=== PATIENT | female | born 1985 | race Caucasian/White ===

== ENCOUNTER 2017-04-20 15:35 | Emergency (ER) | payer OTHER ==
[~2017-04-20] VITALS: Ht 160 cm; Wt 86.2 kg
[~2017-04-20 15:35] MED LIST: AMPI250C11 PO; CIPR-17 PO; DCS100C PO; DICY20TA57 PO; HYDR-3720 PO; HYOS0.1217 PO; Ibuprofen PO; NITR100C3 PO; OMEP-10 PO; OXYC-12 PO; PHEN200T27 PO; PNV1TABL9 PO; PREN1TAB39 PO
--- OUTSIDE RECORDS SUMMARY | 2017-04-20 15:42 | XMS REPORT | Continuity of Care Document ---
Author Author [facility] Organization [facility] Address Unknown Phone Unavailable Allergies Active Description Code Type Severity Reaction Onset Reported/Identified Relationship to Patient Clinical Status Yes codeine [id number] Drug Allergy Mild SLEEPINESS 09/01/2010 Medications Problems Procedures Results Encounters ACCT No. Visit Date/Time Discharge Status Pt. Type Provider Facility Loc./Unit Complaint [id number] 01/16/2014 22:00:00 2013 12:55:00 DIS Inpatient [id number] 01/08/2014 10:07:00 2013 17:30:00 DIS Inpatient [id number] 01/02/2014 16:00:00 2013 09:44:00 DIS Inpatient [id number] 12/09/2013 14:02:00 2013 17:25:00 DIS Outpatient [id number] 04/20/2017 15:37:00 ACT Emergency MARTIN ODELL, CATHY [place] [facility] ER EXPOSED TO MENIGITIS,HEADACHE,STIFF NECK
[2017-04-20] MEDS ORDERED: CITA20TA7 (16:18)
[2017-04-20 16:38] LABS: BASOPHILS # (AUTO) 0.1 10^3/uL (0.0-0.1); BASOPHILS % (AUTO) 1 % (0-10); EOSINOPHILS # (AUTO) 0.3 10^3/uL (0.0-0.3); EOSINOPHILS % (AUTO) 5 % (0-10); LYMPHOCYTES # (AUTO) 2.1 X 10^3 (1.0-4.0); LYMPHOCYTES % (AUTO) 35 % (12-44); MEAN CORPUSCULAR HEMOGLOBIN 31 PG (25-34); MEAN CORPUSCULAR HGB CONC 35 G/DL (32-36); MEAN CORPUSCULAR VOLUME 91 FL (80-99); MEAN PLATELET VOLUME 9.2 FL (7.4-10.4); MONOCYTES # (AUTO) 0.4 X 10^3 (0.0-1.0); MONOCYTES % (AUTO) 7 % (0-12); NEUTROPHILS % (AUTO) 51 % (42-75); PLATELET COUNT 241 10^3/uL (130-400); RED BLOOD COUNT 4.41 10^6/uL (4.35-5.85); RED CELL DISTRIBUTION WIDTH 12.1 % (10.0-14.5); WHITE BLOOD COUNT 5.9 10^3/uL (4.3-11.0)
--- NOTE | 2017-04-20 16:41 | ED General ---
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 She was exposed on Tuesday 04/17 to a patient who was discharged on Sunday but subsequently grew Neisseria meningitidis in his sputum. The patient was not admitted for meningitis but rather respiratory complaints. 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 He and his family were notified and staff exposed to him or given Cipro prophylaxis. She learned of this this morning. She reports a cough and a headache. She was advised to present for examination by infection control. Timing/Duration: 1-2 Days Associated Systoms: Cough, Headaches (CATHY SALAZAR MD) Allergies and Home Medications Allergies Coded Allergies: codeine (Unverified Allergy, Mild, SLEEPINESS, 09/01/10) Home Medications Citalopram Hydrobromide 20 Mg Tablet, (Reported) Codeine/Butalbital/ASA/Caffein 1 Each Capsule, 1 EACH PO Q4H PRN for HEADACHE, # 10 Prescribed by: ALEX RAMIREZ on 04/20/17 2220 Cyclobenzaprine HCl 5 Mg Tablet, 5 MG PO TID PRN for PAIN-MODERATE TO SEVERE, # 14 Prescribed by: ALEX RAMIREZ on 04/20/17 2218 Constitutional: see HPI EENTM: no symptoms reported Respiratory: cough Cardiovascular: no symptoms reported Gastrointestinal: no symptoms reported Genitourinary: no symptoms reported Musculoskeletal: no symptoms reported Skin: no symptoms reported Psychiatric/Neurological: No Symptoms Reported (CATHY SALAZAR MD) Past Icbnnxn-Ctdxdh-Ezbbvr Hx Patient Social History Alcohol Use: Denies Use Recreational Drug Use: No Smoking Status: Never a Smoker Recent Foreign Travel: No Contact w/Someone Who Travel: No Recent Infectious Disease Expo: No Recent Hopitalizations: Yes (childbirth, pyleo) (CATHY SALAZAR MD) Immunizations Up To Date Tetanus Booster (TDap): More than 5yrs PED Vaccines UTD: Yes (CATHY SALAZAR MD) Surgeries History of Surgeries: Yes (ear tubes) (CATHY SALAZAR MD) Respiratory History of Respiratory Disorde: Yes (in 1st grade) Respiratory Disorders: Pneumonia (CATHY SALAZAR MD) Cardiovascular History of Cardiac Disorders: No (CATHY SALAZAR MD) Neurological History of Neurological Disord: No (CATHY SALAZAR MD) Reproductive System Hx Reproductive Disorders: No Sexually Transmitted Disease: No HIV/AIDS: No Female Reproductive Disorders: Denies (CATHY SALAZAR MD) Genitourinary Genitourinary Disorders: UTI-Chronic (CATHY SALAZAR MD) Gastrointestinal History of Gastrointestinal Di: No (CATHY SALAZAR MD) Musculoskeletal History of Musculoskeletal Dis: No (CATHY SALAZAR MD) Endocrine History of Endocrine Disorders: No (CATHY SALAZAR MD) Cancer History of Cancer: No (CATHY SALAZAR MD) Psychosocial History of Psychiatric Problem: Yes (ANGER ISSUES. ) (CATHY SALAZAR MD) Integumentary History of Skin or Integumenta: No (CATHY SALAZAR MD) Blood Transfusions History of Blood Disorders: No Adverse Reaction to a Blood Tr: No (CATHY SALAZAR MD) Family Medical History Family Medial History: Arthritis 19 MOTHER Asthma 19 MOTHER Congenital heart disease maternal grandmother Dementia maternal grandmother Diabetes mellitus maternal grandmother Hypercholesterolemia 19 MOTHER maternal grandmother Hypertension 19 MOTHER maternal grandmother Kidney disease maternal grandmother Respiratory disorder maternal grandmother Thyroid disease 19 MOTHER No Family History of: AIDS Abdominal aortic aneurysm [place] disease Alcoholism Alzheimer's disease Aphasia Cancer of mouth Cardiovascular disease Cataracts Colon cancer Completed stroke Congenital disease Coronary thrombosis Cystic fibrosis Deafness or hearing loss Drug abuse Dysphasia Fibrocystic disease of breast Gastroenteritis Glaucoma Headache disorder Infertility Myocardial infarction Neoplasm Not obtainable due to adoption Osteoporosis Parkinson's disease Prostate cancer Psychosocial problem Seizure disorder Severe allergy Tuberculosis Visual disorder (CATHY SALAZAR MD) Family Medial History: Arthritis 19 MOTHER Asthma 19 MOTHER Congenital heart disease maternal grandmother Dementia maternal grandmother Diabetes mellitus maternal grandmother Hypercholesterolemia 19 MOTHER maternal grandmother Hypertension 19 MOTHER maternal grandmother Kidney disease maternal grandmother Respiratory disorder maternal grandmother Thyroid disease 19 MOTHER No Family History of: AIDS Abdominal aortic aneurysm [place] disease Alcoholism Alzheimer's disease Aphasia Cancer of mouth Cardiovascular disease Cataracts Colon cancer Completed stroke Congenital disease Coronary thrombosis Cystic fibrosis Deafness or hearing loss Drug abuse Dysphasia Fibrocystic disease of breast Gastroenteritis Glaucoma Headache disorder Infertility Myocardial infarction Neoplasm Not obtainable due to adoption Osteoporosis Parkinson's disease Prostate cancer Psychosocial problem Seizure disorder Severe allergy Tuberculosis Visual disorder (ALEX RAMIREZ APRN) Physical Exam Vital Signs Vital Sign - Last 12Hours 04/20/17 04/20/17 15:52 22:59 Temp 98.3 Pulse 92 Resp 18 B/P (MAP) 136/ Pulse Ox 98 O2 Delivery Room Air (ALEX RAMIREZ APRN) Vital Signs Capillary Refill : Less Than 3 Seconds (CATHY SALAZAR MD) General Appearance: Other (cough) Eyes: Bilateral Eye Normal Inspection HEENT: Pharynx Normal Neck: Full Range of Motion, Normal Inspection, Non Tender, Supple, Carotid Bruit, Other (no nuchal rigidity) Respiratory: Chest Non Tender, Lungs Clear, Normal Breath Sounds, No Accessory Muscle Use, No Respiratory Distress Cardiovascular: Regular Rate, Rhythm, No Edema, No Gallop, No JVD, No Murmur, Normal Peripheral Pulses Skin: Normal Color, Warm/Dry (CATHY SALAZAR MD) Progress/Results/Core Measures Suspected Sepsis Recent Fever Within 48 Hours: No Infection Criteria Present: None New/Unexplained Altered Menta: No Sepsis Screen: No Definite Risk Sepsis Diagnosis: SIRS Temperature:98.3 Pulse: 92 Respiratory Rate: 18 Laboratory Tests 04/20/17 16:28: Blood Pressure 136 / Mean: Laboratory Tests 04/20/17 16:28: (CATHY SALAZAR MD) Results/Orders Lab Results Laboratory Tests Test 04/20/17 16:28 04/20/17 21:55 Range/Units White Blood Count 5.9 4.3-11.0 10^3/uL Red Blood Count 4.41 4.35-5.85 10^6/uL Hemoglobin 13.8 11.5-16.0 G/DL Hematocrit 40 35-52 % Mean Corpuscular Volume 91 80-99 FL Mean Corpuscular Hemoglobin 31 25-34 PG Mean Corpuscular Hemoglobin Concent 35 32-36 G/DL Red Cell Distribution Width 12.1 10.0-14.5 % Platelet Count 241 130-400 10^3/uL Mean Platelet Volume 9.2 7.4-10.4 FL Neutrophils (%) (Auto) 51 42-75 % Lymphocytes (%) (Auto) 35 12-44 % Monocytes (%) (Auto) 7 0-12 % Eosinophils (%) (Auto) 5 0-10 % Basophils (%) (Auto) 1 0-10 % Neutrophils # (Auto) 3.0 1.8-7.8 X 10^3 Lymphocytes # (Auto) 2.1 1.0-4.0 X 10^3 Monocytes # (Auto) 0.4 0.0-1.0 X 10^3 Eosinophils # (Auto) 0.3 0.0-0.3 10^3/uL Basophils # (Auto) 0.1 0.0-0.1 10^3/uL Sodium Level 138 135-145 MMOL/L Potassium Level 4.0 3.6-5.0 MMOL/L Chloride Level 105 98-107 MMOL/L Carbon Dioxide Level 27 21-32 MMOL/L Anion Gap 6 5-14 MMOL/L Blood Urea Nitrogen 10 7-18 MG/DL Creatinine 0.89 0.60-1.30 MG/DL Estimat Glomerular Filtration Rate > 60 BUN/Creatinine Ratio 11 Glucose Level 96 70-105 MG/DL Calcium Level 9.4 8.5-10.1 MG/DL Total Bilirubin 0.6 0.1-1.0 MG/DL Aspartate Amino Transf (AST/SGOT) 18 5-34 U/L Alanine Aminotransferase (ALT/SGPT) 21 0-55 U/L Alkaline Phosphatase 49 40-136 U/L C-Reactive Protein High Sensitivity 0.05 0.00-0.50 MG/DL Total Protein 7.6 6.4-8.2 GM/DL Albumin 4.2 3.2-4.5 GM/DL CSF Tube Number 4 CSF Appearance CLEAR CSF Color COLORLESS CSF WBC 0 0-5 CELLS CSF RBC 0 0-0 CELLS CSF Lymphocytes % CSF Mononuclear WBCs % CSF Polynuclear WBCs % CSF Glucose 58 50-80 MG/DL CSF Total Protein 15 15-40 MG/DL (ALEX RAMIREZ APRN) My Orders Orders - ALEX RAMIREZ APRN Cbc With Automated Diff (04/20/17 15:47) Comprehensive Metabolic Panel (04/20/17 15:47) Hs C Reactive Protein (04/20/17 15:47) Saline Lock/Iv-Start (04/20/17 15:47) Csf Cell Count (04/20/17 18:00) Csf Glucose (04/20/17 18:00) Csf Total Protein (04/20/17 18:00) Csf Culture (04/20/17 18:00) Virus Culture (04/20/17 18:00) Anesthesia Consult (04/20/17 18:02) Ketorolac Injection (Toradol Injection) (04/20/17 19:00) Butalbital/Apap/Caffeine Tab (Fioricet T (04/20/17 19:15) Ketorolac Injection (Toradol Injection) (04/20/17 19:30) Orphenadrine Injection (Norflex Injectio (04/20/17 19:30) Ketorolac Injection (Toradol Injection) (04/20/17 19:45) Orphenadrine Injection (Norflex Injectio (04/20/17 19:45) Ciprofloxacin Tablet (Cipro Tablet) (04/20/17 22:30) (ALEX RAMIREZ APRN) Medications Given in ED Current Medications Medications Dose Ordered Sig/Shaun Route Start Time Stop Time Status Last Admin Dose Admin Acetaminophen/ Butalbital/ Caffeine 1 tab ONCE PRN PO 04/20/17 19:15 04/20/17 23:00 DC 04/20/17 19:30 1 TAB Ketorolac Tromethamine 60 mg ONCE ONCE IM 04/20/17 19:30 04/20/17 19:31 DC 04/20/17 19:49 60 MG Orphenadrine Citrate 60 mg ONCE ONCE IM 04/20/17 19:30 04/20/17 19:31 DC 04/20/17 19:49 60 MG (ALEX RAMIREZ APRN) Vital Signs/I&O Vital Sign - Last 12Hours 04/20/17 04/20/17 15:52 22:59 Temp 98.3 Pulse 92 86 Resp 18 14 B/P (MAP) 136/ Pulse Ox 98 O2 Delivery Room Air (ALEX RAMIREZ APRN) Vital Signs/I&O Capillary Refill : Less Than 3 Seconds (CATHY SALAZAR MD) Departure Communication (Admissions) Progress Notes 1900-taken over care for this patient from Dr. Salazar. Updated the patient on plan of care. She does have neck discomfort and is unable to flex her chin to chest due to the pain this causes in the back of her neck. She remains afebrile. Labs are unremarkable. Given that she has recently been exposed to Neisseria meningitidis we will proceed with lumbar puncture diagnostic. Awaiting anesthesia 2100-Toradol and Fioricet has been given for headache. This did improve her symptoms but did not completely resolve them. Still awaiting anesthesia. I requested the second anesthesia provider to be called. 2158-MICHAEL from Anesthesia has been here to do the lumbar puncture. These are being walked to lab currently. (ALEX RAMIREZ APRN) Impression Impression: Primary Impression: Headache Disposition: HOME, SELF-CARE Condition: Improved Departure-Patient Inst. Decision time for Depature: 22:17 (ALEX RAMIREZ APRN) Referrals: NO,LOCAL PHYSICIAN (PCP/Family) Primary Care Physician Patient Instructions: Headache, Adult (DC) Add. Discharge Instructions: 1. REturn to ER for any concerns or fevers 2. Medication as directed 3. Naproxen 500mg twice dialy as needed for pain in addition to prescribed medication 4. You may notice for the next 2-3 days that you have a increase in headache upon standing that resolves with lying flat. This is called a post dural puncture headache and typically resolves without any particular treatment in 2 or 3 days. Worst case scenario, if this fails to subside in a few days he may return to the emergency room an epidural blood patch may be discussed. All discharge instructions reviewed with patient and/or family. Voiced understanding. Scripts Codeine/Butalbital/ASA/Caffein (Fiorinal-Cod 98-51-288-40 Cap) 1 Each Capsule 1 EACH PO Q4H Y for HEADACHE, #10 CAP Prov: ALEX RAMIREZ APRN 04/20/17 Cyclobenzaprine HCl (Cyclobenzaprine HCl) 5 Mg Tablet 5 MG PO TID Y for PAIN-MODERATE TO SEVERE, #14 TAB Prov: ALEX RAMIREZ APRN 04/20/17 Work/School Note: Work Release Form Date Seen in the Emergency Department: Apr 20, 2017 Return to Work: Apr 22, 2017 CATHY SALAZAR MD Apr 20, 2017 16:41 ALEX RAMIREZ APRN Apr 20, 2017 21:07
[2017-04-20 16:56] LABS: ALANINE AMINOTRANSFERASE 21 U/L (0-55); ALBUMIN 4.2 GM/DL (3.2-4.5); ANION GAP 6 MMOL/L (5-14); ASPARTATE AMINO TRANSFERASE 18 U/L (5-34); BILIRUBIN,TOTAL 0.6 MG/DL (0.1-1.0); BLOOD UREA NITROGEN 10 MG/DL (7-18); BUN/CREATININE RATIO 11; CALCIUM 9.4 MG/DL (8.5-10.1); CARBON DIOXIDE 27 MMOL/L (21-32); CHLORIDE 105 MMOL/L (98-107); CREATININE SERUM 0.89 MG/DL (0.60-1.30); GFR ESTIMATED > 60; GLUCOSE 96 MG/DL (70-105); SODIUM 138 MMOL/L (135-145); TOTAL PROTEIN 7.6 GM/DL (6.4-8.2); hs C REACTIVE PROTEIN 0.05 MG/DL (0.00-0.50)
--- NOTE | 2017-04-20 17:26 | Diagnostic Imaging Report ---
PROCEDURE: CT head without contrast. TECHNIQUE: Multiple contiguous axial images were obtained through the brain without the use of intravenous contrast. INDICATION: Neck pain and headache. FINDINGS: The ventricles and sulci are within normal limits. There is no hydrocephalus or cerebral edema. There is no midline shift or mass effect. There is no intracranial mass, hemorrhage, or extra-axial fluid collection. The visualized paranasal sinuses and mastoid air cells are clear. There are no regional areas of decreased attenuation appreciated to suggest an acute CVA. IMPRESSION: No acute intracranial abnormality. Dictated by: Dictated on workstation # [id number]
[2017-04-20] MEDS ORDERED: KETOROLAC 30 MG/ML VIAL IVP ONE (19:00)
[2017-04-20] MEDS ORDERED: ACET/BUTAL/CAFF (FIORICET) TAB PO PRN (19:15)
[2017-04-20] MEDS ORDERED: KETOROLAC 60 MG/2 ML VIAL IM ONE ×2 (19:30→19:45)
[2017-04-20] MEDS ORDERED: ORPHENADRINE 60 MG/2 ML (NORFLEX) AMP IM ONE ×2 (19:30→19:45)
--- NOTE | 2017-04-20 22:05 | Progress Note-Standard ---
Standard Progress Note Progress Notes/Assess & Plan Date Seen by Provider: Apr 20, 2017 Time Seen by Provider: 21:40 Progress/Assessment & Plan consult for LP. Labs and CT WNL. sub arachanoid space id'd with clear csf return. opening pressure 23. 2cc x4 drawn and sent to lab. tolerated procedure well. atttemp[t x 1 MICHAEL KLEIN CRNA Apr 20, 2017 22:05
[2017-04-20 22:14] LABS: APPEARANCE,CSF CLEAR; COLOR,CSF COLORLESS; WHITE BLOOD CELL,CSF 0 CELLS (0-5)
[2017-04-20] MEDS ORDERED: CYCL5TAB PO (22:18)
[2017-04-20] MEDS ORDERED: CODE1CAP35 PO (22:20)
[2017-04-20] MEDS ORDERED: CIPROFLOXACIN 500 MG (CIPRO) TABLET PO SCH (22:30)
[2017-04-20 22:32] LABS: CSF GLUCOSE 58 MG/DL (50-80); CSF TOTAL PROTEIN 15 MG/DL (15-40)
[2017-04-20 22:59] VITALS: BP 109/73
== END 2017-04-20 23:00 | disposition home or self-care (01) ==
LOC: EDUNIT# 15:35 → ER 15:37
DX: R51 Headache (principal); Z87.01 Personal history of pneumonia (recurrent); Z87.440 Personal history of urinary (tract) infections; Z82.49 Family history of ischemic heart disease and other diseases of the circulatory system
CPT/HCPCS: 36415; 70450; 80053; 82945; 84157; 85025; 86141; 87070; 87205; 87252; 89051; 99284